=== PATIENT | female | born 1970 | race Caucasian/White ===

== ENCOUNTER 2016-12-11 06:46 | Emergency (ER) | payer MEDICAID, OTHER ==
[~2016-12-11] VITALS: Ht 167.6 cm; Wt 77.0 kg
[~2016-12-11 06:46] MED LIST: AMLO10TA2 PO; AMLO5 PO; AMPH1TAB67 PO; LIPI20TA PO; METO25TA6 PO; OXYC1TAB36 PO; Pill Splitter OTHER; TRIA37.53 PO; VENL75XR PO
[2016-12-11 06:49] VITALS: BP 188/97; PULSE 78; RESP 16; TEMP 98.1; O2SAT 96
[2016-12-11] MEDS ORDERED: ALBU0.63 NEB (07:05)
[2016-12-11] MEDS ORDERED: PRED20 PO (07:33)
[2016-12-11] MEDS ORDERED: ZITHTAB PO (07:33)
--- NOTE | 2016-12-11 07:37 | PD ---
HPI Chief Complaint: Respiratory Symptoms Time Seen by Provider: 07:32 Travel History International Travel<30 days: No Contact w/Intl Traveler<30days: No Traveled to known affect area: No History of Present Illness HPI The patient was seen and examined in the presence of the nurse. She complains of cough and congestion and wheezing. She is an asthmatic and uses nebulizer at home. She quit smoking 4 months ago. She is not having fever but does have a hacking cough for 4 days. Symptoms severity is moderate. PFSH Past Medical History Arthritis: Yes Asthma: Yes Autoimmune Disease: No Blood Disorders: No Anxiety: Yes Depression: Yes Heart Rhythm Problems: Yes Cancer: No Cardiovascular Problems: Yes (neurocardiogenic syncope) High Cholesterol: No Chemotherapy: No Chest Pain: No Congestive Heart Failure: No COPD: No Cerebrovascular Accident: No Diabetes: No Diminished Hearing: No Endocrine: No GERD: No Glaucoma: No Genitourinary: No Headaches: Yes Hepatitis: No Hiatal Hernia: No Hypertension: Yes Immune Disorder: No Implanted Vascular Access Dvce: Yes Kidney Stones: No Musculoskeletal: Yes (L4 and L5 ) Neurologic: Yes Psychiatric: No Reproductive: No Respiratory: No Migraines: Yes (3 per month) Myocardial Infarction: No Radiation Therapy: No Renal Failure: No Seizures: No Sleep Apnea: No Thyroid Disease: No Ulcer: No ?: Unknown Past Surgical History Abdominal Surgery: Yes (appendix) AICD: No Appendectomy: Yes Arteriovenous Shunt: No Cardiac Surgery: Yes (pacemaker, right side) Cholecystectomy: No Ear Surgery: No Endocrine Surgery: No Eye Surgery: Yes (Lasix) Genitourinary Surgery: No Gynecologic Surgery: Yes (hysterectomy) Hysterectomy: Yes Insulin Pump: No Joint Replacement: No Oral Surgery: No Pacemaker: Yes Thoracic Surgery: No Other Surgery: Yes (pacemaker, back, hysterectomy, breast augmentation, appendix) Social History Alcohol Use: No Tobacco Use: No (quit) Substance Use: Yes Allergies-Medications (Allergen,Severity, Reaction): Coded Allergies: Cleocin (Verified Allergy, Mild, 12/11/16) Erythromycin (Verified Allergy, Mild, 12/11/16) Reported Meds & Prescriptions Reported Meds & Active Scripts Active Prednisone 20 Mg Tab 20 Mg PO DAILY Zithromax Z-Yony (Azithromycin) 250 Mg Dspk 250 Mg PO DIRECTED 500 MG (2 tabs) day 1, then 1 tab days 2-5. Reported Albuterol Neb (Albuterol Sulfate) 0.63 Mg/3 Ml Neb 0.63 Mg NEB Q4HR NEB PRN Metoprolol Succinate ER 24 HR (Metoprolol Succinate) 25 Mg Tab 25 Mg PO HS Review of Systems General / Constitutional: No: Fever HENT: No: Headaches Respiratory: Positive: Cough, Shortness of Breath, Wheezing Physical Exam Narrative RESPIRATORY: Respiratory effort unlabored, no retractions or use of accessory muscles. Breath sounds reveal diffuse rhonchi but no active wheezing or crackles CARDIOVASCULAR: Regular rate and rhythm without murmur. Extremities showed no edema or varicosities. GASTROINTESTINAL: Abdomen soft, non-tender, nondistended. Positive bowel sounds. No hepato-splenomegaly, or palpable masses. No guarding. Data Data Last Documented VS Vital Signs Date Time Temp Pulse Resp B/P Pulse Ox O2 Delivery O2 Flow Rate FiO2 12/11/16 06:58 78 12/11/16 06:49 98.1 16 188/97 96 Room Air MDM Medical Decision Making Medical Screen Exam Complete: Yes Emergency Medical Condition: Yes Medical Record Reviewed: Yes Differential Diagnosis Bronchitis, pneumonia, asthma Narrative Course I have reviewed the patient's electronic medical record. Presentation seems consistent with an acute bronchitis pattern in an asthmatic. Saturations are good. Prescribed her Zithromax course as well as 5 days of prednisone She will use nebulizer as needed Follow-up primary care and return if worse Diagnosis Primary Impression: Acute bronchitis Qualified Code: J20.9 - Acute bronchitis, unspecified organism Additional Instructions: The patient was advised to follow up with their physician and return if they worsen. Med/Other Pt SpecificInfo: Prescription(s) given Scripts Prednisone 20 Mg Tab20 Mg PO DAILY #5 TAB Ref 0 Prov:Terry Recinos MD 12/11/16 Azithromycin (Zithromax Z-Yoyn)250 Mg [id number] Mg PO DIRECTED #1 DSPK Ref 0 500 MG (2 tabs) day 1, then 1 tab days 2-5. Prov:Terry Recinos MD 12/11/16 Disposition: 01 DISCHARGE HOME Condition: Stable Terry Recinos MD Dec 11, 2016 07:37
== END 2016-12-11 07:47 | disposition home or self-care (01) ==
LOC: NEPC 06:46
DX: J20.9 Acute bronchitis, unspecified (principal); Z87.891 Personal history of nicotine dependence
CPT/HCPCS: 99284